=== PATIENT | female | born 1935 | race Caucasian/White ===

== ENCOUNTER 2021-08-08 13:39 | Inpatient (IN) ==
[2021-08-08] MEDS ORDERED: Acetaminophen 325 MG TABLET PO PRN (13:56)
[2021-08-08] MEDS ORDERED: hydrALAZINE 25 MG TABLET PO ONE (22:17)
[2021-08-08] MEDS: clonazePAM 0.5 MG TABLET PO PRN (22:43)
[2021-08-09] MEDS: *HR* Enoxaparin 40 MG/0.4 ML SYRINGE SQ SCH (06:24)
[2021-08-09 06:48] LABS: Basophils # 0.1 K/mcL (0.0-0.2); Eosinophils # 0.2 K/mcL (0.0-0.6); Eosinophils % 2.1 %; Hematocrit 41.6 % (35.3-44.9); Hemoglobin 13.6 g/dL (11.5-15.4); Immature Granulocytes % 0.6 % (0-4); Lymphocytes # 2.3 K/mcL (0.6-4.6); Lymphocytes % 24.5 %; Mean Corpuscular HGB Conc 32.7 g/dL (31.6-35.5); Mean Corpuscular Volume 91.6 fL (83.0-100.0); Mean Platelet Volume 10.7 fL (9.4-12.4); Monocytes # 1.1 K/mcL (0.0-1.3); Monocytes % 11.8 %; Neutrophils # 5.6 K/mcL (1.6-8.9); Platelet Count 204 K/mcL (140-400); Red Blood Count 4.54 M/mcL (3.82-4.97); Red Cell Distribution Width 12.5 % (11.5-14.5); White Blood Count 9.4 K/mcL (4.3-11.1)
[2021-08-09 07:09] LABS: BUN/Creatinine Ratio 44 (6-26); Blood Urea Nitrogen 30 mg/dL (8-23); Calcium 9.4 mg/dL (8.6-10.3); Carbon Dioxide 24 mEq/L (23-29); Chloride 107 mEq/L (98-107); Glucose 96 mg/dL (70-105); Osmolality,Calculated 296 (280-300); Potassium 3.6 mEq/L (3.5-5.1); Sodium 140 mEq/L (136-145); eGFR For African Americans > 60 (> 60); eGFR For Non-African Americans > 60 (> 60)
[2021-08-09] MEDS ORDERED: NON-FORMULARY MEDICATION 1 EACH EACH (Vit A/C/E Ac/Znox/Cupric Oxide [Eye Vitamin-Minerals PO SCH (09:00)
[2021-08-09] MEDS: amLODIPine 5 MG TABLET PO SCH (09:02)
[2021-08-09] MEDS: Aspirin 81 MG TAB.CHEW PO SCH (09:02)
[2021-08-09] MEDS: Ascorbic Acid 500 MG TABLET PO SCH (09:03)
[2021-08-09] MEDS: lisinopriL 20 MG TABLET PO SCH (09:03)
[2021-08-09] MEDS: Cholecalciferol (D-3) 1,000 UNIT (25MCG) TABLET PO SCH (09:04)
[2021-08-09] MEDS: clonazePAM 0.5 MG TABLET PO PRN (22:38)
[2021-08-10] MEDS: *HR* Enoxaparin 40 MG/0.4 ML SYRINGE SQ SCH (06:20)
[2021-08-10] MEDS: Cholecalciferol (D-3) 1,000 UNIT (25MCG) TABLET PO SCH (10:08)
[2021-08-10] MEDS: lisinopriL 20 MG TABLET PO SCH (10:08)
[2021-08-10] MEDS: amLODIPine 5 MG TABLET PO SCH (10:08)
[2021-08-10] MEDS: Ascorbic Acid 500 MG TABLET PO SCH (10:08)
[2021-08-10] MEDS: Aspirin 81 MG TAB.CHEW PO SCH (10:08)
[2021-08-11] MEDS: Ascorbic Acid 500 MG TABLET PO SCH (07:43)
[2021-08-11] MEDS: Aspirin 81 MG TAB.CHEW PO SCH (07:43)
[2021-08-11] MEDS: amLODIPine 5 MG TABLET PO SCH (07:43)
[2021-08-11] MEDS: lisinopriL 20 MG TABLET PO SCH (07:43)
[2021-08-11] MEDS: *HR* Enoxaparin 40 MG/0.4 ML SYRINGE SQ SCH (07:44)
[2021-08-11] MEDS: Cholecalciferol (D-3) 1,000 UNIT (25MCG) TABLET PO SCH (07:45)
[2021-08-11] MEDS: Sennosides/Docusate Sodium TABLET PO SCH (21:45)
[2021-08-11] MEDS: clonazePAM 0.5 MG TABLET PO PRN (21:55)
[2021-08-12] MEDS: lisinopriL 20 MG TABLET PO SCH (09:21)
[2021-08-12] MEDS: Sennosides/Docusate Sodium TABLET PO SCH ×2 (09:21→20:48)
[2021-08-12] MEDS: Aspirin 81 MG TAB.CHEW PO SCH (09:21)
[2021-08-12] MEDS: Cholecalciferol (D-3) 1,000 UNIT (25MCG) TABLET PO SCH (09:21)
[2021-08-12] MEDS: amLODIPine 5 MG TABLET PO SCH (09:21)
[2021-08-12] MEDS: Ascorbic Acid 500 MG TABLET PO SCH (09:21)
[2021-08-12] MEDS: *HR* Enoxaparin 40 MG/0.4 ML SYRINGE SQ SCH (09:21)
[2021-08-12] MEDS: clonazePAM 0.5 MG TABLET PO PRN (20:49)
[2021-08-13] MEDS: *HR* Enoxaparin 40 MG/0.4 ML SYRINGE SQ SCH (05:49)
[2021-08-13] MEDS: amLODIPine 5 MG TABLET PO SCH (09:13)
[2021-08-13] MEDS: Aspirin 81 MG TAB.CHEW PO SCH (09:13)
[2021-08-13] MEDS: lisinopriL 20 MG TABLET PO SCH (09:14)
[2021-08-13] MEDS: Ascorbic Acid 500 MG TABLET PO SCH (09:14)
[2021-08-13] MEDS: Sennosides/Docusate Sodium TABLET PO SCH (09:14)
[2021-08-13] MEDS: Cholecalciferol (D-3) 1,000 UNIT (25MCG) TABLET PO SCH (09:14)
[2021-08-13] MEDS ORDERED: Fluconazole 150 MG TABLET PO ONE (17:26)
[2021-08-13 17:29] LABS: Bilirubin,Urine Negative (Negative); Blood,Urine Trace-intact (Negative); Clarity,Urine Clear (Clear); Color,Urine Yellow (Yellow); Glucose,Urine (UA) Normal (Normal); Ketones,Urine Negative (Negative); Leukocyte Esterase,Urine Small (Negative); Nitrite,Urine Negative (Negative); PH,Urine 6.5 pH Units (5.0-8.0); Protein,Urine Negative (Neg-Trace); Specific Gravity,Urine 1.015 (1.010-1.025); Urobilinogen,Urine Normal (Normal)
[2021-08-13 17:35] LABS: Bacteria,Urine Few per hpf (None-Few); RBC,Urine 0-3 per hpf (0-3)
[2021-08-13] MEDS: clonazePAM 0.5 MG TABLET PO PRN (20:21)
[2021-08-14] MEDS: *HR* Enoxaparin 40 MG/0.4 ML SYRINGE SQ SCH (05:57)
[2021-08-14] MEDS: lisinopriL 20 MG TABLET PO SCH (09:12)
[2021-08-14] MEDS: clonazePAM 0.5 MG TABLET PO PRN (09:12)
[2021-08-14] MEDS: Aspirin 81 MG TAB.CHEW PO SCH (09:12)
[2021-08-14] MEDS: amLODIPine 5 MG TABLET PO SCH (09:12)
[2021-08-14] MEDS: Ascorbic Acid 500 MG TABLET PO SCH (09:12)
[2021-08-14] MEDS: Cholecalciferol (D-3) 1,000 UNIT (25MCG) TABLET PO SCH (09:14)
[2021-08-15] MEDS: *HR* Enoxaparin 40 MG/0.4 ML SYRINGE SQ SCH (06:48)
[2021-08-15] MEDS: amLODIPine 5 MG TABLET PO SCH (10:44)
[2021-08-15] MEDS: levoFLOXacin 500 MG TABLET PO SCH (10:44)
[2021-08-15] MEDS: Ascorbic Acid 500 MG TABLET PO SCH (10:44)
[2021-08-15] MEDS: Cholecalciferol (D-3) 1,000 UNIT (25MCG) TABLET PO SCH (10:44)
[2021-08-15] MEDS: Aspirin 81 MG TAB.CHEW PO SCH (10:44)
[2021-08-15] MEDS: clonazePAM 0.5 MG TABLET PO PRN ×2 (10:45→22:50)
[2021-08-15] MEDS: lisinopriL 20 MG TABLET PO SCH (10:53)
[2021-08-15] MEDS ORDERED: lisinopriL 20 MG TABLET PO ONE (19:37)
[2021-08-16] MEDS: *HR* Enoxaparin 40 MG/0.4 ML SYRINGE SQ SCH (05:31)
[2021-08-16] MEDS: levoFLOXacin 500 MG TABLET PO SCH (08:06)
[2021-08-16] MEDS: Cholecalciferol (D-3) 1,000 UNIT (25MCG) TABLET PO SCH (08:06)
[2021-08-16] MEDS: lisinopriL 20 MG TABLET PO SCH (08:06)
[2021-08-16] MEDS: amLODIPine 5 MG TABLET PO SCH (08:06)
[2021-08-16] MEDS: Aspirin 81 MG TAB.CHEW PO SCH (08:06)
[2021-08-16] MEDS: Ascorbic Acid 500 MG TABLET PO SCH (08:06)
[2021-08-16] MEDS: Sennosides/Docusate Sodium TABLET PO PRN (08:11)
[2021-08-16] MEDS: clonazePAM 0.5 MG TABLET PO PRN ×2 (10:38→22:32)
[2021-08-16] MEDS: Nitrofurantoin (BID) 100 MG CAPSULE PO SCH (17:01)
[2021-08-17] MEDS: *HR* Enoxaparin 40 MG/0.4 ML SYRINGE SQ SCH (05:05)
[2021-08-17 05:58] LABS: Basophils # 0.1 K/mcL (0.0-0.2); Basophils % 0.6 %; Eosinophils # 0.2 K/mcL (0.0-0.6); Eosinophils % 2.1 %; Hematocrit 39.7 % (35.3-44.9); Immature Granulocytes % 0.9 % (0-4); Lymphocytes # 2.1 K/mcL (0.6-4.6); Lymphocytes % 24.1 %; Mean Corpuscular HGB Conc 32.7 g/dL (31.6-35.5); Mean Corpuscular Hemoglobin 30.2 pg (28.0-33.3); Mean Corpuscular Volume 92.1 fL (83.0-100.0); Monocytes # 0.9 K/mcL (0.0-1.3); Monocytes % 10.4 %; Neutrophils # 5.4 K/mcL (1.6-8.9); Platelet Count 237 K/mcL (140-400); Red Blood Count 4.31 M/mcL (3.82-4.97); Red Cell Distribution Width 12.2 % (11.5-14.5); Segmented Neutrophils % 61.9 %; White Blood Count 8.7 K/mcL (4.3-11.1)
[2021-08-17 06:14] LABS: BUN/Creatinine Ratio 40 (6-26); Blood Urea Nitrogen 28 mg/dL (8-23); Calcium 9.5 mg/dL (8.6-10.3); Carbon Dioxide 28 mEq/L (23-29); Chloride 106 mEq/L (98-107); Glucose 95 mg/dL (70-105); Osmolality,Calculated 297 (280-300); Potassium 3.9 mEq/L (3.5-5.1); Sodium 141 mEq/L (136-145); eGFR For African Americans > 60 (> 60); eGFR For Non-African Americans > 60 (> 60)
[2021-08-17] MEDS: Cholecalciferol (D-3) 1,000 UNIT (25MCG) TABLET PO SCH (08:22)
[2021-08-17] MEDS: lisinopriL 20 MG TABLET PO SCH (08:22)
[2021-08-17] MEDS: amLODIPine 5 MG TABLET PO SCH (08:22)
[2021-08-17] MEDS: Aspirin 81 MG TAB.CHEW PO SCH (08:22)
[2021-08-17] MEDS: Nitrofurantoin (BID) 100 MG CAPSULE PO SCH ×2 (08:22→16:49)
[2021-08-17] MEDS: Ascorbic Acid 500 MG TABLET PO SCH (08:22)
[2021-08-17] MEDS: clonazePAM 0.5 MG TABLET PO PRN ×2 (11:07→23:10)
[2021-08-17] MEDS ORDERED: Melatonin 3 MG TABLET PO PRN (21:00)
[2021-08-18] MEDS: *HR* Enoxaparin 40 MG/0.4 ML SYRINGE SQ SCH (06:07)
[2021-08-18] MEDS: Ascorbic Acid 500 MG TABLET PO SCH (11:22)
[2021-08-18] MEDS: amLODIPine 5 MG TABLET PO SCH (11:23)
[2021-08-18] MEDS: Nitrofurantoin (BID) 100 MG CAPSULE PO SCH ×2 (11:23→16:18)
[2021-08-18] MEDS: Aspirin 81 MG TAB.CHEW PO SCH (11:23)
[2021-08-18] MEDS: Cholecalciferol (D-3) 1,000 UNIT (25MCG) TABLET PO SCH (11:23)
[2021-08-18] MEDS: lisinopriL 20 MG TABLET PO SCH (11:23)
[2021-08-18 19:54] VITALS: RESP 16; TEMP 97.6
[2021-08-18] MEDS: clonazePAM 0.5 MG TABLET PO PRN (22:11)
[2021-08-19] MEDS: *HR* Enoxaparin 40 MG/0.4 ML SYRINGE SQ SCH (06:27)
[2021-08-19 08:13] VITALS: BP 135/75; PULSE 56; O2SAT 100
[2021-08-19] MEDS: amLODIPine 5 MG TABLET PO SCH (09:53)
[2021-08-19] MEDS: lisinopriL 20 MG TABLET PO SCH (09:53)
[2021-08-19] MEDS: Nitrofurantoin (BID) 100 MG CAPSULE PO SCH (09:53)
[2021-08-19] MEDS: Aspirin 81 MG TAB.CHEW PO SCH (09:53)
[2021-08-19] MEDS: Ascorbic Acid 500 MG TABLET PO SCH (09:54)
[2021-08-19] MEDS: Cholecalciferol (D-3) 1,000 UNIT (25MCG) TABLET PO SCH (09:54)
[2021-08-19] MEDS: Sennosides/Docusate Sodium TABLET PO PRN (09:57)
== END 2021-08-19 15:05 | disposition home health service (06) | DRG 948 ==
LOC: INPPIK 20:14 → SUATTDRO 20:14
PROVIDERS: ADMIT Nurse Practitioner Family; ATTEND Family Medicine